=== PATIENT | male | born 1970 | race Caucasian/White ===

== ENCOUNTER 2021-08-19 17:00 | Emergency (ER) | payer OTHER ==
[~2021-08-19] VITALS: Ht 185.4 cm; Wt 85.7 kg
[2021-08-19] MEDS ORDERED: BENADRYL25 MG PO (19:06)
[2021-08-19] MEDS ORDERED: PRED20 PO (19:06)
== END 2021-08-19 19:11 | disposition home or self-care (01) ==
LOC: ER 17:00
DX: L25.9 Unspecified contact dermatitis, unspecified cause (principal)
CPT/HCPCS: 76870; 96372; 99283-25; A9270; J3301